=== PATIENT | female | born 1995 | race Caucasian/White ===

== ENCOUNTER 2017-07-01 08:26 | Outpatient (CLI) | payer OTHER ==
[~2017-07-01] VITALS: Ht 167.6 cm; Wt 70.7 kg
[2017-07-01] MEDS ORDERED: PREN-93 PO (08:45)
[2017-07-01 08:46] VITALS: BP 110/71; PULSE 84; RESP 18
[2017-07-01 08:47] VITALS: Ht 167.6 cm; Wt 70.7 kg
--- NOTE | 2017-07-01 09:32 | RADRPT ---
PROCEDURE: US biophysical profile. CLINICAL INDICATION: Gestational diabetes. TECHNIQUE: Multiple sonographic images of the uterus were obtained. The images were revi ewed on a PACS workstation. COMPARISON: No prior studies are available for comparison. FINDINGS: There is a single live intrauterine gestation. heart rate is 136 beats per minute. The position is cephalic. The placenta is anterior grade II with no abruption or previa. The CHARLES is 8.9 cm. (Normal = 5-20 cm.) Breathing Movement: 2 Gross Body Movement: 2 Tone: 2 Qualitative Amniotic Fluid Volume: 2 TOTAL: 8 IMPRESSION: 1. The biophysical score is 8/8. RPTAT: QQ .Colton Romero MD, MD Date Time Electronically viewed and signed by .Colton Romero MD, on 07/01/2017 09:32 .R/
--- NOTE | 2017-07-01 10:06 | PN ---
Triage Information Date/Time Reason for visit: Weeks of Gestation Patient is 1 para 0 at 37 weeks and 2 days of gestation with estimated date of delivery July 20, 2017 Patient with gestational diabetes diet-controlled here for NST and biophysical profile She reports positive movement, no vaginal bleeding, no leaking fluid and no contractions /Para 1 para 0 Diabetes: gestational Diabetes management: diet controlled Hypertention: none Objective Vital Signs Date Time Temp Pulse Resp B/P Pulse Ox O2 Delivery O2 Flow Rate FiO2 07/01/17 08:46 98.6 84 18 110/71 94 Room Air Heart Rate: 140's Heart Rate Comments heart rate tracing category 1 Contractions: >10 Minutes Apart Results/Medications Imaging Results PROCEDURE: US biophysical profile. CLINICAL INDICATION: Gestational diabetes. TECHNIQUE: Multiple sonographic images of the uterus were obtained. The images were reviewed on a PACS workstation. COMPARISON: No prior studies are available for comparison. FINDINGS: There is a single live intrauterine gestation. heart rate is 136 beats per minute. The position is cephalic. The placenta is anterior grade II with no abruption or previa. The CHARLES is 8.9 cm. (Normal = 5-20 cm.) Breathing Movement: 2 Gross Body Movement: 2 Tone: 2 Qualitative Amniotic Fluid Volume: 2 TOTAL: 8 IMPRESSION: 1. The biophysical score is 8/8. RPTAT: QQ .Colton Romero MD, MD Date Time Electronically viewed and signed by .Colton Romero MD, MD on 07/01/2017 09:32 .R/ CC: HAILEY CARRILLO MD Disposition: Discharge Assessment/Plan kick count instructions were given Patient to be discharged home She was instructed to return on July 03 for repeat NST and BPP FABIAN PETIT MD Jul 01, 2017 10:06
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
== END 2017-07-01 10:05 | disposition home or self-care (01) ==
LOC: OBT 08:26 → L-D 08:27 → OBT 10:05
PROVIDERS: ATTEND Obstetrics & Gynecology
DX: O24.419 Gestational diabetes mellitus in pregnancy, unspecified control (principal); Z3A.37 37 weeks gestation of pregnancy
CPT/HCPCS: 76818; G0463

== ENCOUNTER 2017-07-03 09:28 | Inpatient (IN) | END 2017-07-07 12:25 | disposition home or self-care (01) | DRG 775 ==

== ENCOUNTER 2017-11-02 19:25 | Emergency (ER) | END 2017-11-02 22:21 | disposition home or self-care (01) ==